=== PATIENT | female | born 1945 ===

== ENCOUNTER 2025-06-14 11:08 | Outpatient (REF) | payer MEDICARE, MEDICAID, SELFPAY ==
--- OUTSIDE RECORDS SUMMARY | 2025-06-14 13:22 | XMS_ITS ---
Author Name [facility] Organization Unknown Care Team Organization Name Specialty Phone Email Start Date End Da te [facility] ACO 05/05/2025 [facility] Justin Mccullough Primary Care 05/23/2023 024 [facility] Termed, PROVIDER Primary Care 07/24/202204/16
[2025-06-14 14:24] LABS: Appearance Urine Cloudy; Glucose Urine UA Negative (Negative); PH 5.5 (5.0-9.0); Specific Gravity - Urine 1.025 (1.005-1.025); UMIC TRIGGER UACC YES
[2025-06-14 14:29] LABS: UACC Culture Trigger YES
== END 2025-06-14 11:09 | disposition home or self-care (01) ==
LOC: HO.LAB 11:08
PROVIDERS: Visit Provider Nurse Practitioner Family
DX: N30.90 Cystitis, unspecified without hematuria (principal)
CPT/HCPCS: 81001; 81003; 87086; 87088; 87186; 99202

== ENCOUNTER 2025-06-14 11:08 | Outpatient (AMB) | payer MEDICARE, MEDICAID, SELFPAY ==
--- NOTE | 2025-06-14 11:33 | AM.OFFWIN_ITS ---
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 Pt reports Urinary Urgency, Dysuria and difficulty urinating for few days now. Denies Fevers, chills, Nausea or vomiting. PFSH Medical History (Updated 06/14/25 @ 12:01 by Meera Cerna NP) Cystitis Social History Patient Tobacco Use Status: Never used Tobacco Review of Systems Const All systems reviewed & are unremarkable except as noted in HPI and below Physical Exam Vital Signs: Last Vital Signs Temp 98.3 F 06/14/25 11:35 Pulse 56 06/14/25 11:35 Resp 16 06/14/25 11:35 BP 150/74 H 06/14/25 11:35 Pulse Ox 97 06/14/25 11:35 Oxygen Delivery Method Room Air 06/14/25 11:35 Const General: no acute distress Nutritional Appearance: overweight Orientation/consciousness: patient oriented x3 General: Yes no CVA tenderness Back/Spine/Pelvis Back: no CVA tenderness Neuro General: patient oriented x3, gait normal and moves all extremities Psych Speech and movement: Normal speech and movement present Assessment & Plan Assessment & Plan (1) Cystitis: Code(s): N3 - Cystitis, unspecified without hematuria Plan: Urinalysis Positive for NA, NIT and Blood. Will ordered Cefuroxime for 7 days Will Send Urine for C&S. Orders: Orders UA CC w/rflx Micro + Cult Today N390 - Cystitis, unspecified without hematuria Medications: New cefuroxime axetil 500 mg PO BID 14 tabs 0RF 7 days N3.90 - Cystitis, unspecified without hematuria Coding Level of Care Code New Pt Level 4 (61895) Diagnoses Cystitis N3 Time Spent (min) 20
[2025-06-14 11:35] VITALS: BP 150/74; PULSE 56; RESP 16; TEMP 36.8; O2SAT 97
--- OUTSIDE RECORDS SUMMARY | 2025-06-14 12:37 | XMS_ITS | Clinical Summary ---
Author Organization [facility] [address] 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 07/09/20 23 Active incontinence pad, liner, disp pad Use daily for Incontinence / 240/month 11 refills [id number] 03/08/20 23 Active vitamin E acetate (VITAMIN E ORAL) Take by mouth. Activ e ibuprofen (ADVIL,MOTRIN) 200 mg tablet Take 1 tablet (200 mg total) by mouth every 6 (six) hours if needed. Active cholecalcifero l (VITAMIN D-3) 5,000 Units tablet Take 1 Capsule by mouth once a week. Active acetaminophen (TYLENOL) 325 mg tablet Take 650 mg by mouth every 6 hours as needed. Active ascorbic acid (VITAMIN C) 1,000 mg tablet Take 1,000 mg by mouth daily. Active vitamin B complex (VITAMINS B COMPLEX ORAL) Take by mouth. A ctive calcium carb/vit D3/minerals (CALCIUM CARBONATE-VIT D3-MIN ORAL) Take by mouth. 600 mg Active hydroCHLOROthi azide (HYDRODIURIL) 25 mg tablet TAKE 1 TABLET BY MOUTH EVERY DAY 90 tablet 1 12/23/19 25 Active aspirin 81 mg EC tablet Take 1 tablet (81 mg total) by mouth 1 (one) time each day. 90 tablet 01/08/20 25 Active traZODone (DESYREL) 50 mg tablet TAKE 1 TABLET BY MOUTH AT BEDTIME NEEDED FOR SLEEP 90 tablet 1 02/03/20 25 Active simvastatin (ZOCOR) 20 mg tablet Take 1 tablet (20 mg total) by mouth at bedtime. 90 tablet 1 03/01/20 25 Active albuterol HFA (Proventil HFA) 90 mcg/actuation inhaler Inhale 2 puffs by mouth every 4 (four) hours if needed for wheezing or shortness of breath. 6.7 g 1 03/01/20 25 026 Active atenoloL (TENORMIN) 50 mg tablet Take 1 tablet (50 mg total) by mouth 1 (one) time each day. 90 tablet 1 03/01/20 25 Active omeprazole (PriLOSEC) [address] capsule Take 1 capsule (20 mg total) by mouth 1 (one) time each day. 90 capsule 1 03/01/20 25 Active FLUoxetine (PROzac) 40 mg capsule Take 1 capsule (40 mg total) by mouth 1 (one) time each day. 90 capsule 1 03/01/20 25 Active busPIRone (BUSPAR) 5 mg tablet Take 1 tablet (5 mg total) by mouth 2 (two) times a day. 180 each 1 03/26/20 25 Active LORazepam (ATIVAN) 0.5 mg tablet TAKE 1 TABLET BY MOUTH 1 TIME EACH DAY IF NEEDED FOR ANXIETY. 28 tablet 06/03/20 25 Active LORazepam (ATIVAN) 0.5 mg tablet Take 1 tablet (0.5 mg total) by mouth 1 (one) time each day if needed for anxiety. 28 tablet 05/05/20 25 025 Discontinued Active Problems Problem Noted Date Diagnosed Date Gastroesophageal reflux disease without esophagi tis 11/11/2023 Urge incontinence 11/11/2023 Mixed hyperlipidemia 05/28/2022 Chest pain 05/23/2021 Overview (06/12/2024): Last Assessment & Plan: Her chest pain is atypical. She has a reassuring dobutamine stress echocardiogram from November 2020. I believe her high levels of anxiety and depression are contributing to her symptoms. She may benefit from increasing her lorazepam to 1 mg twice daily which I instructed the granddaughter to discuss with the patient's primary care doctor. She may also benefit from an additional SSRI. At this time no further cardiac testing is warranted. We discussed signs and symptoms of cardiac chest pain. Knee pain 11/30/2020 Thyroid nodule 11/30/2020 Osteopenia 09/27/2020 Subclinical hyperthyroidism 06/27/2020 Anxiety and depression 03/27/2016 Osteoarthritis, knee 01/09/2012 Overview (06/12/2024): R>L Obesity 11/26/2011 Primary hypertension 10/15/2008 Overview (06/12/2024): Last Assessment & Plan: 132/80 in office today, well-controlled on current therapy. Continue hydrochlorothiazide and atenolol. 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 ([facility] V24, [facility] V28) 01/28/2007 Cellulitis 08/28/2006 Overview (06/12/2024): IMO update Venous (peripheral) insufficiency 08/28/2006 Contact dermatitis and eczema 08/28/2006 Encounters Date Type Department Care Team Description 03/26/2025 10:30 AM EDT Office Visit Adult Medicine [address] [id number] Tamica Boles PA Primary hypertension (Primary Dx); Anxiety and depression; Primary osteoarthritis of both hands; Bilateral carpal tunnel syndrome from Last 3 Months Immunizations Immunization Administration Dates Next Due Influenza trivalent, 0.5mL ( Fluad) 65yo and older 07/20/2024 Influenza trivalent, 0.5mL ( Fluzone High-dose) 65yo and older 06/10/2023,06/20/2022,07/05/2021,05/18,06/15/2019,07/09/2018,05/28/2016 Influenza trivalent, with pr eservative (Fluzone; Afluria) 6mo and older 07/26/2014,08/17/2013,05/28/2011,08/28 Influenza, Unspecified 07/03/2017 Moderna SARS-CoV-2 COVID-19, mRNA, LNP-S, preservative free 12/25/2020,11/27/2020 Pneumococcal conjugate 13 va lent (Prevnar 13, PCV13) 2mo and older 08/05/2017 Pneumococcal polysaccharide 23 valent (Pneumovax 23) 2yo and older 03/28/2010 Td Tetanus diptheria (Tdvax) 7yo and older 11/11/2023,03/28/2010 Tdap Tetanus diptheria acell ular pertussis (Boostrix; Adacel) 7yo and older 10/20/2012 Surgical History Surgery Date Site/Laterality Comments HYSTERECTOMY PROCEDURE: HISTORICAL HYSTERECTOMY Medical History Medical History Date Comments Unspecified venous (peripher al) insufficiency 08/28/2006 DX:Unspecified venous (perip heral) insufficiency Unspecified disorder of lipo id metabolism 09/15/2008 DX:Unspecified disorder of l ipoid metabolism Subclinical hyperthyroidism DX:S ubclinical hyperthyroidism Family History Medical History Relation Name Comments Other: well Father Other: unknown Mother Breast cancer Neg Hx Relation Name Status Comments Father Mother Social History Tobacco Use Types Packs/Day Years Used Date Smoking Tobacco: Never Smokeless Tobacco: Never Tobacco Cessation:Counseling Given: Not Answered Alcohol Use Standard Drinks/Week Comments No 0 (1 standard drink = 0.6 oz pur e alcohol) Comments No Sex and Gender Information Value Date Recorded Sex Assigned at Not on file Legal Sex Female 7:20 AM EST Gender Identity Not on file Sexual Orientation Not on file Obstetrics History Last Filed Vital Signs Vital Sign Reading Time Taken Comments Blood Pressure 138/82 03/26/2025 10:45 AM EDT Pulse 80 03/26/2025 10:31 AM EDT Temperature 36.8 C (98.2 F) 03/26/2025 10:31 AM EDT Respiratory Rate 18 03/26/2025 10:31 AM EDT Oxygen Saturation - - Inhaled Oxygen Concentration - - Weight 91.2 kg (201 lb) 03/26/2025 10:31 AM EDT Height 167.6 cm (5' 6 ) 03/26/2025 10:31 AM EDT Body Mass Index 32.44 03/26/2025 10:31 AM EDT Plan of Treatment Upcoming Encounters Date Type Department Care Team (Late st Contact Info) Description 08/30/2025 9:15 AM EST Office Visit Adult Medicine [address], [place] [phone] Pipo Montalvo MD [address] [place], [place] Health Maintenance Due Date Last Done Comments Zoster Vaccines (1 of 2) 1994 RSV Immunization Adult Patients (1 - 1-dose 75+ series) 2019 Colorectal Cancer Screening: Stool Based Tests (FOBT/FIT) 08/25/2022 Medicare Annual Wellness Visit 08/25/2022 Social Influencers of Health Screening 08/25/2022 Depression Screening 09/16/2024 11/11/2023 Falls Risk Assessment 11/11/2024 11/11/2023 COVID-19 Vaccine ( season) 2025 12/25/2020, 11/27/2020 Influenza Vaccine (#1) 2025 , 06/10/2023, 06/20/2022, Additional history exists Hypertension/CHF/CAD Annual BMP Blood Test 07/22/2025 07/22/2024, 06/13/2023 Cholesterol Screening (Lipid Panel) 07/22/2029 07/22/2024, 06/13/2023 DTaP,Tdap,and Td Vaccines (4 - Td or Tdap) 11/11/2033 11/11/2023, 10/20/2012, 03/28/2010 Osteoporosis Screening (Bone Density Screening) 11/25/2033 11/26/2023, 08/03/2020, 01/21/2018 Pneumococcal Vaccine: 50+ Years Completed 08/05/2017, 03/28/2010 HIB Vaccines Aged Out No longer eligi ble based on patient's age to complete this topic HPV Vaccines Aged Out No longer eligi ble based on patient's age to complete this topic Hepatitis A Vaccines Aged Out No long er eligible based on patient's age to complete this topic Hepatitis B Vaccines Aged Out No long er eligible based on patient's age to complete this topic IPV Vaccines Aged Out No longer eligi ble based on patient's age to complete this topic MMR Vaccines Aged Out No longer eligi ble based on patient's age to complete this topic Meningococcal ACWY Vaccine Aged Out N o longer eligible based on patient's age to complete this topic Meningococcal B Vaccine Aged Out No l onger eligible based on patient's age to complete this topic RSV Immunization Patients Under 20 months Aged Out No longer eligible based on patient's age to complete this topic Varicella Vaccines Aged Out No longer eligible based on patient's age to complete this topic Procedures Procedure Name Priority Date/Time Associated Diagnosis Comments COMPREHENSIVE METABOLIC PANEL Routine 07/22/2024 8:16 AM EST Mixed hyperlipidemia Subclinical hyperthyroidism Primary hypertension LIPID PANEL WITH REFLEX TO DIRECT LDL Routine 07/22/2024 8:16 AM EST Mixed hyperlipidemia DXA BONE DENSITY STUDY 1+ SITS AXIAL SKEL Routine 11/26/2023 10:19 AM EDT Other specified disorders of bone density and structure, unspecified site DEPRESSION SCREENING Routine 11/11/2023 FALLS RISK ASSESSMENT Routine 11/11/2023 from Last 3 Months or Most Recently Relevant to Health Maintenance Results * (ABNORMAL) Lipid panel with reflex to direct LDL (07/22/2024 8:16 AM EST) Cholesterol 162 0 - 200 mg/dL LAB CHEMISTRY METHOD 07/22/2024 10:44 AM [facility] Triglycerides 166(H) 0 - 150 mg/dL LAB CHEMISTRY METHOD 07/22/2024 10:44 AM [facility] HDL 62 >=40 mg/dL LAB CHEMISTRY METHOD 07/22/2024 10:44 AM [facility] LDL Calculated 67 0 - 100 mg/dL LAB CHEMISTRY METHOD 07/22/2024 10:44 AM [facility] VLDL Cholesterol Matteo 33.2 mg/dL LAB CHEMISTRY METHOD 07/22/2024 10:44 AM [facility] Non HDL Chol. (LDL+VLDL) 100 <145 mg/dL LAB CHEMISTRY METHOD 07/22/2024 10:44 AM [facility] Chol/HDL Ratio 2.6 0.0 - 4.4 LAB CHEMISTRY METHOD 07/22/2024 10:44 AM [facility] Blood Venous blood specimen / Unknown Venipuncture / Unknown 07/22/2024 8:16 AM EST 07/22/2024 8:16 AM EST Tamica ZAMORA LAB BLOOD ORDERABLES Fin al Result [facility] [address] [place] [address], [place] [phone] * (ABNORMAL) Comprehensive metabolic panel (07/22/2024 8:16 AM EST) Sodium 140 133 - 145 mmol/L LAB CHEMISTRY METHOD 07/22/2024 10:44 AM [facility] Potassium 3.6 3.5 - 5.5 mmol/L LAB CHEMISTRY METHOD 07/22/2024 10:44 AM [facility] Chloride 103 96 - 110 mmol/L LAB CHEMISTRY METHOD 07/22/2024 10:44 AM [facility] CO2 33(H) 21 - 32 mmol/L LAB CHEMISTRY METHOD 07/22/2024 10:44 AM [facility] Anion Gap 4 3 - 11 LAB CHEMISTRY METHOD 07/22/2024 10:44 AM [facility] Glucose 105(H) 70 - 100 mg/dL LAB CHEMISTRY METHOD 07/22/2024 10:44 AM [facility] BUN 13 5 - 25 mg/dL LAB CHEMISTRY METHOD 07/22/2024 10:44 AM [facility] Creatinine 0.77 0.50 - 1.10 mg/dL LAB CHEMISTRY METHOD 07/22/2024 10:44 AM [facility] eGFR 78 >=60 mL/min/1. 73m2 LAB CHEMISTRY METHOD 07/22/2024 10:44 AM [facility] Comment:Calculation based on the Chronic Kidney Disease Epidemiology Collaboration (CKD-EPI) equation refit without adjustment for race. BUN/Creatinine Ratio 16.9 LAB CHEMISTRY METHOD 07/22/2024 10:44 AM [facility] Calcium 9.2 8.5 - 10.5 mg/dL LAB CHEMISTRY METHOD 07/22/2024 10:44 AM [facility] AST (SGOT) 22 10 - 42 unit/L LAB CHEMISTRY METHOD 07/22/2024 10:44 AM [facility] ALT (SGPT) 17 10 - 60 unit/L LAB CHEMISTRY METHOD 07/22/2024 10:44 AM [facility] Alkaline Phosphatase 81 42 - 121 unit/L LAB CHEMISTRY METHOD 07/22/2024 10:44 AM [facility] Total Protein 6.6 6.0 - 8.0 g/dL LAB CHEMISTRY METHOD 07/22/2024 10:44 AM [facility] Albumin 3.7 3.2 - 5.0 g/dL LAB CHEMISTRY METHOD 07/22/2024 10:44 AM [facility] Total Bilirubin 1.4 0.0 - 1.4 mg/dL LAB CHEMISTRY METHOD 07/22/2024 10:44 AM [facility] Blood Venous blood specimen / Unknown Venipuncture / Unknown 07/22/2024 8:16 AM EST 07/22/2024 8:16 AM EST us Tamica ZAMORA LAB BLOOD ORDERABLES Fin al Result [facility] [address] [place] [address], * DXA BONE DENSITY STUDY 1+ SITS AXIAL SKEL (11/26/2023 10:19 AM EDT) Anatomical Region Laterality Modality Bone Densitometr y 02/18/2023 10:3 0 AM EDT Narrative 11/29/2023 7:25 AM EDT BONE DENSITY (DEXA) Lumbar Spine T-score is -0.6. (SD relative to 20-29 y/o adult) Z-score is 2.0. (SD relative to age matched peers) This is considered normal by WHO criteria. Left Hip T-score is -1.8. Z-score is 0.5. This is considered osteopenia by WHO criteria. IMPRESSION: This patient is considered to have osteopenia by WHO criteria. This patient has a 13% risk of major osteoporotic fracture and a 3.3% risk of hip fracture over the next 10 years. (World Health Organization Fracture Risk Assessment) [facility] Department of Internal Medicine recommends using National Osteoporosis Foundation (NOF) guidelines in treatment decisions related to osteoporosis. NOF guidelines suggest considering treatment for postmenopausal women and men aged 50 or older presenting with the following: History of hip or vertebral fracture. T-score = -2.5 (DXA) at the femoral neck, total hip, or spine, after appropriate evaluation to exclude secondary causes. Low bone mass (T-score between -1.0 and -2.5 at the femoral neck or spine) AND a 10-year probability of a hip fracture = 3% OR a 10-year probability of a major osteoporosis-related fracture = 20% based on the [place]-adapted WHO algorithm Please note that all treatment decisions require clinical judgment and consideration of individual patient factors, including patient preferences, co-morbidities, previous drug use, risk factors not captured in the FRAX model (e.g., frailty, falls, vitamin D deficiency, increased bone turnover, interval significant decline in bone density) and possible under- or over-estimation of fracture risk by FRAX. Optional alternative screening schedule based on pio Murray., [facility] October 04, 2011 for patients with osteopenia (based on hip BMD T-score) is as follows: * advanced osteopenia (T scores -2.00 to -2.49), BMD testing every year * moderate osteopenia (T scores -1.50 to -1.99), BMD testing every 5 years mild osteopenia or normal BMD (T scores -1.50 and higher), BMD testing every 15 years Procedure Note Allyson Barber MD - 05/04/2024 BONE DENSITY (DEXA) Lumbar Spine T-score is -0.6. (SD relative to 20-29 y/o adult) Z-score is 2.0. (SD relative to age matched peers) This is considered normal by WHO criteria. Left Hip T-score is -1.8. Z-score is 0.5. This is considered osteopenia by WHO criteria. IMPRESSION: This patient is considered to have osteopenia by WHO criteria. Thispatient has a 13% risk of major osteoporotic fracture and a 3.3% risk of hip fracture over the next10 years. (World Health Organization Fracture Risk Assessment) [facility] Department of Internal Medicinerecommends using National Osteoporosis Foundation (NOF) guidelines in treatment decisionsrelated to osteoporosis. NOF guidelines suggest considering treatment forpostmenopausal women and men aged 50 or older presenting with the following: History of hip or vertebral fracture. T-score = -2.5 (DXA) at the femoral neck, total hip, or spine, afterappropriate evaluation to exclude secondary causes. Low bone mass (T-score between -1.0 and -2.5 at the femoral neck or spine)AND a 10-year probability of a hip fracture = 3% OR a 10-year probability of a majorosteoporosis-related fracture = 20% based on the [place]-adapted WHO algorithm Please note that all treatment decisions require clinical judgment andconsideration of individual patient factors, including patient preferences, co- morbidities,previous drug use, risk factors not captured in the FRAX model (e.g., frailty, falls, vitaminD deficiency, increased bone turnover, interval significant decline in bone density) andpossible under- or over-estimation of fracture risk by FRAX. Optional alternative screening schedule based on pio Murray., NEJMJanuary 2011 for patients with osteopenia (based on hip BMD T-score) is as follows: * advanced osteopenia (T scores -2.00 to -2.49), BMD testing every year * moderate osteopenia (T scores -1.50 to -1.99), BMD testing every 5years mild osteopenia or normal BMD (T scores -1.50 and higher), BMD testingevery 15 years us Justin Mccullough MD IMG DXA PROCEDURES Final Result * Falls Risk Assessment (11/11/2023) Falls Risk Assessment Abstracted Historical Provider HEALTH MAINTENANCE Final Result * Depression Screening (11/11/2023) HM Depression Screening Abstracted Historical Provider HEALTH MAINTENANCE Final Result from Last 3 Months or Most Recently Relevant to Health Maintenance Insurance MEDICARE [place]ICAID [place] Care Teams 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
== END 2025-06-14 11:58 | disposition home or self-care (01) ==
PROVIDERS: Visit Provider Nurse Practitioner Family
DX: Z13.9 Encounter for screening, unspecified (principal); N30.90 Cystitis, unspecified without hematuria